=== PATIENT | male | born 1960 | race Caucasian/White ===

== ENCOUNTER 2019-11-22 09:55 | Emergency (ER) | payer MEDICARE, OTHER, SELFPAY ==
--- NOTE | ~2019-11-22 | XR_ITS ---
EXAMINATION: XR foot LT min 3V DATE: 11/22/2019 10:32 INDICATION: Cyst at the left first metatarsal with focal swelling, pain and erythema TECHNIQUE: Dorsoplantar, two oblique and lateral views of the left foot were obtained. COMPARISON: None. FINDINGS: Hallux valgus. No fracture. Mild osteoarthritis at the first metatarsophalangeal and a few interphala ngeal joints. Subtle calcific density within a prominent region of soft tissue swelling medial to the head of the first metatarsal. Shallow juxta articular erosion with corticated margins at the medial base of the first proximal phalanx. The location of the soft tissue swelling, internal calcific densi ty and adjacent erosion would also be typical for tophaceous gout. Small exostosis versus heterotopic ossification at the dorsal medial base of the left second metatarsal. IMPRESSION: 1. 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 Reviewed, dictated and finalized at location A. IMPRESSION: 1. 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
[2019-11-22 10:07] VITALS: BP 129/65; PULSE 53; RESP 18; TEMP 36.3; O2SAT 98
--- NOTE | 2019-11-22 10:25 | ED.EXTPRO ---
HPI - Extremity Problem General Chief complaint: Extremity Problem,Nontraumatic Stated complaint: left foot pain/swollen/weeping Time Seen by Provider: 11/22/19 10:25 Source: patient Mode of arrival: ambulatory Limitations: no limitations History of Present Illness HPI Narrative: Kojo Baum is a 58 yo male with a AAA (?dissection), HTN, gout, with a large bunion that is infected and weeping on L great toe. Painful to walk. States that red/painful last few days Related Data Home Medications Medication Instructions Recorded Confirmed albuterol sulfate INHALATION 11/22/19 allopurinol 11/22/19 amlodipine 11/22/19 clonidine HCl 11/22/19 colchicine [Colcrys] mg 11/22/19 diclofenac sodium PO 11/22/19 furosemide 11/22/19 lisinopril 11/22/19 methylprednisolone mg 11/22/19 metoprolol tartrate 11/22/19 oxycodone-acetaminophen 11/22/19 pregabalin 11/22/19 tiotropium-olodaterol [Stiolto INHALATION 11/22/19 Respimat] Allergies Allergy/AdvReac Type Severity Reaction Status Date / Time No Known Allergies Allergy Unverified 12/21/14 17:24 Review of Systems Review of Systems: Narrative: CONSTITUTIONAL: Denies fever, chills, sweats. EYES: Denies visual changes, redness, discharge. ENT: Denies rhinorrhea, congestion, sore throat, otalgia. CARDIOVASCULAR: Denies chest pain, palpitations, edema. RESPIRATORY: Denies dyspnea, wheezing, cough GASTROINTESTINAL: Denies abdominal pain, nausea, vomiting, diarrhea. GENITOURINARY: Denies dysuria, hematuria, abnormal discharge SKIN: Denies rash or itching. Left great toe swelling at base, weeping area NEUROLOGIC: Denies numbness, or focal weakness. PSYCHIATRIC: Denies anxiety or depression. [facility] Family History Family History Other Hypertension Social History Social History (Updated 11/22/19 @ 10:28 by Mayi Vu CNP) Smoking status: Never smoker Alcohol intake: current Comments At time of signature, I agree with nursing past medical, surgical, social and family history. There is no relevant family history pertinent to the presenting complaint. Exam Narrative: Exam Narrative: GENERAL: This is a well-nourished, well-developed patient, in moderate distress. HEAD: normocephalic, atraumatic. EYES: Sclera clear/white. Vision is grossly intact. EARS: External ears normal, auditory canals clear and without drainage, TMs normal without perforation. Hearing grossly intact. NOSE: External nose normal without nasal discharge, nares without redness, no rhinorrhea. THROAT: Mucous membranes moist, NECK: Neck supple, CARDIOVASCULAR: Regular rate and rhythm without murmurs, gallops, or rubs. RESPIRATORY: Clear to auscultation. Breath sounds equal bilaterally. No wheezes, rales, or rhonchi. GASTROINTESTINAL: Abdomen soft, SKIN: warm, intact with no suspicious lesions or rash, good texture and turgor. NEURO: awake, alert, and oriented to person, place and time. There were no obvious focal neurologic abnormalities. 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
== END 2019-11-22 11:05 | disposition home or self-care (01) ==
PROVIDERS: Emergency Provider Nurse Practitioner
DX: L03.032 Cellulitis of left toe (principal); I10 Essential (primary) hypertension; M10.9 Gout, unspecified; I71.4 Abdominal aortic aneurysm, without rupture
CPT/HCPCS: 73630; 99203; G0463